=== PATIENT | female | born 1980 | race Two or more races ===

== ENCOUNTER 2021-05-17 12:26 | Emergency (ER) | payer OTHER ==
[~2021-05-17] VITALS: Ht 165.1 cm; Wt 74.8 kg
[2021-05-17] MEDS ORDERED: CIPRO500 MG PO (17:40)
== END 2021-05-17 18:19 | disposition home or self-care (01) ==
LOC: ER 12:26
DX: N39.0 Urinary tract infection, site not specified (principal)

== ENCOUNTER 2022-05-11 11:05 | Emergency (ER) | payer OTHER ==
[~2022-05-11] VITALS: Ht 165.1 cm; Wt 77.1 kg
[~2022-05-11 11:05] MED LIST: CIPRO500 MG PO
== END 2022-05-11 17:18 | disposition home or self-care (01) ==
LOC: ER 11:05
DX: O46.91 Antepartum hemorrhage, unspecified, first trimester (principal)